=== PATIENT | female | born 1955 | race Caucasian/White ===

== ENCOUNTER → 2016-04-24 | Outpatient (CLI) | payer BC ==
--- NOTE | 2016-04-26 09:48 | MM ---
Reason for exam: screening (asymptomatic). Last mammogram was performed 1 year ago. History: Patient is postmenopausal. Family history of breast cancer in maternal grandmother at age 80. Took hormonal contraceptives for 2 years beginning at age 21. Took progesterone for 4 years 6 months beginning at age 47. Physical Findings: A clinical breast exam by your physician is recommended on an annual basis and results should be correlated with mammographic findings. MG 3D Screening Mammo W/Cad Bilateral CC and MLO view(s) were taken. Prior study comparison: April 21, 2015, bilateral MG 3d screening mammo w/cad. March 27, 2014, bilateral MG screening mammo w CAD. The breast tissue is heterogeneously dense. This may lower the sensitivity of mammography. There is no discrete abnormality. No significant changes when compared with prior studies. ASSESSMENT: Negative, BI-RAD 1 RECOMMENDATION: Routine screening mammogram of both breasts in 1 year.
== END | disposition home or self-care (01) ==
LOC: RADMAMWWP 13:38
PROVIDERS: ATTEND Family Medicine
DX: Z12.31 Encounter for screening mammogram for malignant neoplasm of breast (principal)
CPT/HCPCS: 77063; G0202

== ENCOUNTER → 2018-02-06 | Outpatient (CLI) | payer BC ==
--- NOTE | 2018-02-08 10:00 | MM ---
Reason for exam: screening (asymptomatic). Last mammogram was performed 1 year and 9 months ago. History: Patient is postmenopausal. Family history of breast cancer in maternal grandmother at age 80. Took hormonal contraceptives for 2 years beginning at age 21. Took progesterone for 4 years 6 months beginning at age 47. Physical Findings: A clinical breast exam by your physician is recommended on an annual basis and results should be correlated with mammographic findings. MG 3D Screening Mammo W/Cad Bilateral CC and MLO view(s) were taken. Prior study comparison: April 24, 2016, bilateral MG 3d screening mammo w/cad. April 21, 2015, bilateral MG 3d screening mammo w/cad. The breast tissue is heterogeneously dense. This may lower the sensitivity of mammography. There is chronic nodularity in the right breast. No significant changes when compared with prior studies. ASSESSMENT: Benign, BI-RAD 2 RECOMMENDATION: Routine screening mammogram of both breasts in 1 year.
== END | disposition home or self-care (01) ==
LOC: RADMAMWWP 16:54
PROVIDERS: ATTEND Family Medicine
DX: Z12.31 Encounter for screening mammogram for malignant neoplasm of breast (principal)
CPT/HCPCS: 77063; 77067

== ENCOUNTER → 2019-05-16 | Outpatient (CLI) | payer BC ==
--- NOTE | 2019-05-20 10:11 | MM ---
Reason for exam: screening (asymptomatic). Last mammogram was performed 1 year and 3 months ago. History: Patient is postmenopausal. Family history of breast cancer in maternal grandmother at age 80. Took hormonal contraceptives for 2 years beginning at age 21. Took progesterone for 4 years 6 months beginning at age 47. Physical Findings: A clinical breast exam by your physician is recommended on an annual basis and results should be correlated with mammographic findings. MG 3D Screening Mammo W/Cad Bilateral CC and MLO view(s) were taken. Prior study comparison: February 06, 2018, bilateral MG 3d screening mammo w/cad. April 24, 2016, bilateral MG 3d screening mammo w/cad. The breast tissue is heterogeneously dense. This may lower the sensitivity of mammography. No significant changes when compared with prior studies. ASSESSMENT: Benign, BI-RAD 2 RECOMMENDATION: Routine screening mammogram of both breasts in 1 year.
== END | disposition home or self-care (01) ==
LOC: RADMAMWWP 13:50
PROVIDERS: ATTEND Family Medicine
DX: Z12.31 Encounter for screening mammogram for malignant neoplasm of breast (principal)
CPT/HCPCS: 77063; 77067

== ENCOUNTER → 2020-07-23 | Outpatient (CLI) | payer BC ==
--- NOTE | 2020-07-27 07:29 | MM ---
Reason for exam: screening (asymptomatic). Last mammogram was performed 1 year and 2 months ago. History: Patient is postmenopausal. Family history of breast cancer in maternal grandmother at age 80. Took hormonal contraceptives for 2 years beginning at age 21. Took progesterone for 4 years 6 months beginning at age 47. Physical Findings: A clinical breast exam by your physician is recommended on an annual basis and results should be correlated with mammographic findings. MG 3D Screening Mammo W/Cad Bilateral CC and MLO view(s) were taken. Prior study comparison: May 16, 2019, bilateral MG 3d screening mammo w/cad. February 06, 2018, bilateral MG 3d screening mammo w/cad. The breast tissue is heterogeneously dense. This may lower the sensitivity of mammography. There is chronic nodularity in the right breast laterally. No significant changes when compared with prior studies. ASSESSMENT: Benign, BI-RAD 2 RECOMMENDATION: Routine screening mammogram of both breasts in 1 year.
== END | disposition home or self-care (01) ==
LOC: RADMAMWWP 14:45
PROVIDERS: ATTEND Family Medicine
DX: Z12.31 Encounter for screening mammogram for malignant neoplasm of breast (principal); Z80.3 Family history of malignant neoplasm of breast; Z78.0 Asymptomatic menopausal state
CPT/HCPCS: 77063; 77067

== ENCOUNTER → 2021-08-17 | Outpatient (CLI) | payer BC, MEDICARE ==
--- NOTE | 2021-08-19 11:50 | MM ---
Reason for exam: screening (asymptomatic). Last mammogram was performed 1 year and 1 month ago. History: Patient is postmenopausal. Family history of breast cancer in maternal grandmother at age 80. Took hormonal contraceptives for 2 years beginning at age 21. Took progesterone for 4 years 6 months beginning at age 47. Physical Findings: A clinical breast exam by your physician is recommended on an annual basis and results should be correlated with mammographic findings. MG 3D Screening Mammo W/Cad Bilateral CC and MLO view(s) were taken. Prior study comparison: July 23, 2020, bilateral MG 3d screening mammo w/cad. May 16, 2019, bilateral MG 3d screening mammo w/cad. The breast tissue is heterogeneously dense. This may lower the sensitivity of mammography. There is chronic nodularity in the right breast. No significant changes when compared with prior studies. ASSESSMENT: Benign, BI-RAD 2 RECOMMENDATION: Routine screening mammogram of both breasts in 1 year.
== END | disposition home or self-care (01) ==
LOC: RADMAMWWP 14:29
PROVIDERS: ATTEND Family Medicine
DX: Z12.31 Encounter for screening mammogram for malignant neoplasm of breast (principal); Z78.0 Asymptomatic menopausal state; Z80.3 Family history of malignant neoplasm of breast
CPT/HCPCS: 77063; 77067

== ENCOUNTER → 2022-08-18 | Outpatient (CLI) | payer BC, MEDICARE ==
--- NOTE | 2022-08-21 18:48 | MM ---
Reason for Exam: Screening (asymptomatic). Last screening mammogram was performed 12 month(s) ago. Patient History: Menarche at age 12. First Full-Term at age 20. Right ovary removed at age 52. Hysterectomy at age 52. Postmenopausal. Progesterone for 4 years, 6 months, from age 47 until age 52. Hormonal Contraceptives for 2 years from age 21 until age 23. Maternal grandmother had breast cancer, age 80. Risk Values: Yecenia 5 year model risk: 1.3%. NCI Lifetime model risk: 4.8%. Prior Study Comparison: 05/16/2019 Bilateral Screening Mammogram, [facility]. 07/23/2020 Bilateral Screening Mammogram, [facility]. 08/17/2021 Bilateral Screening Mammogram, [facility]. Tissue Density: The breast tissue is heterogeneously dense. This may lower the sensitivity of mammography. Findings: Analyzed By CAD. Pattern appears symmetrical and stable. Scattered benign calcifications are present. No significant interval change is evident. No suspicious groups of microcalcifications, spiculated or lobular masses, architectural distortion or other secondary signs of malignancy are mammographically apparent. Overall Assessment: Benign, BI-RAD 2 Management: Screening Mammogram of both breasts in 1 year. A negative mammogram report should not preclude additional follow up of suspicious palpable abnormalities. Patient should continue monthly self breast exam. A clinical breast exam by your physician is recommended on an annual basis and results should be correlated with mammographic findings. Electronically signed and approved by: Mukesh Burt D.O. Radiologis
== END | disposition home or self-care (01) ==
LOC: RADMAMWWP 16:50
PROVIDERS: ATTEND Family Medicine
DX: Z12.31 Encounter for screening mammogram for malignant neoplasm of breast (principal); Z78.0 Asymptomatic menopausal state; Z80.3 Family history of malignant neoplasm of breast
CPT/HCPCS: 77063; 77067

== ENCOUNTER → 2023-08-20 | Outpatient (CLI) | payer BC, MEDICARE ==
--- NOTE | 2023-08-21 20:26 | MM ---
Reason for Exam: Screening (asymptomatic). Last screening mammogram was performed 12 month(s) ago. Patient History: Menarche at age 12. First Full-Term at age 20. Right ovary removed at age 52. Hysterectomy at age 52. Postmenopausal. Progesterone for 4 years, 6 months, from age 47 until age 52. Hormonal Contraceptives for 2 years from age 21 until age 23. Maternal grandmother had breast cancer, age 80. Risk Values: Yecenia 5 year model risk: 1.3%. NCI Lifetime model risk: 4.6%. Prior Study Comparison: 07/23/2020 Bilateral Screening Mammogram, [facility]. 08/17/2021 Bilateral Screening Mammogram, [facility]. 08/18/2022 Bilateral MG 3D screening mammo w/cad, [facility]. Tissue Density: The breasts are heterogeneously dense, which may obscure small masses. Findings: Analyzed By CAD. 11-12 o'clock focal asymmetry right breast middle depth appears more defined. This may represent superimposition shadow but further evaluation is recommended. Otherwise, no significant change. Overall Assessment: Incomplete: need additional imaging evaluation, BI-RAD 0 Management: Special View Mammogram of the right breast. Diagnostic Breast Ultrasound of the right breast. . [facility] will attempt to contact patient to return for supplemental views and ultrasound if indicated. Electronically signed and approved by: Kelsey Lira M.D. Radiologist
== END | disposition home or self-care (01) ==
LOC: RADMAMWWP 16:15
PROVIDERS: ATTEND Family Medicine
DX: Z12.31 Encounter for screening mammogram for malignant neoplasm of breast (principal); Z80.3 Family history of malignant neoplasm of breast; Z78.0 Asymptomatic menopausal state
CPT/HCPCS: 77063; 77067

== ENCOUNTER → 2023-08-28 | Outpatient (CLI) | payer BC, MEDICARE ==
--- NOTE | 2023-08-28 14:20 | MM ---
Reason for Exam: Additional evaluation requested from abnormal screening. Last screening mammogram was performed less than 1 month ago. Patient History: Menarche at age 12. First Full-Term at age 20. Right ovary removed at age 52. Hysterectomy at age 52. Postmenopausal. Progesterone for 4 years, 6 months, from age 47 until age 52. Hormonal Contraceptives for 2 years from age 21 until age 23. Maternal grandmother had breast cancer, age 80. Risk Values: Yecenia 5 year model risk: 1.3%. NCI Lifetime model risk: 4.6%. Tissue Density: Right: The breasts are heterogeneously dense, which may obscure small masses. Findings: Analyzed By CAD. Under compression a persistent suspicious density is not identified. No distortion is evident. Precautionary six-month follow-up is recommended. No suspicious groups of microcalcifications, spiculated or lobular masses, architectural distortion or other secondary signs of malignancy are mammographically apparent. Overall Assessment: Probably benign, BI-RAD 3 Management: Diagnostic Mammogram of the right breast in 6 months. A negative mammogram report should not preclude additional follow up of suspicious palpable abnormalities. Patient should continue monthly self breast exam. A clinical breast exam by your physician is recommended on an annual basis and results should be correlated with mammographic findings. Note on Yecenia scores and lifetime risk: 1. A Yecenia score greater than 3% is considered moderate risk. If this is the case, consider specialist referral to assess eligibility for a risk reducing agent. 2. If overall lifetime risk for the development of breast cancer is 20% or higher, the patient may qualify for future screening with alternating mammogram and breast MRI. Electronically signed and approved by: Mukesh Burt D.O. Radiologis
== END | disposition home or self-care (01) ==
LOC: RADMAMWWP 13:50
PROVIDERS: ATTEND Family Medicine
DX: R92.8 Other abnormal and inconclusive findings on diagnostic imaging of breast (principal); R92.331 Mammographic heterogeneous density, right breast; Z78.0 Asymptomatic menopausal state; Z80.3 Family history of malignant neoplasm of breast
CPT/HCPCS: 77061; 77065

== ENCOUNTER → 2024-02-29 | Outpatient (CLI) | payer BC, MEDICARE ==
--- NOTE | 2024-02-29 13:42 | MM ---
Reason for Exam: Follow-up at short interval from prior study. Last screening mammogram was performed 6 month(s) ago. Patient History: Menarche at age 12. First Full-Term at age 20. Right ovary removed at age 52. Hysterectomy at age 52. Postmenopausal. Progesterone for 4 years, 6 months, from age 47 until age 52. Hormonal Contraceptives for 2 years from age 21 until age 23. Maternal grandmother had breast cancer, age 80. Risk Values: Yecenia 5 year model risk: 1.3%. NCI Lifetime model risk: 4.6%. Prior Study Comparison: 08/18/2022 Bilateral MG 3D screening mammo w/cad, [facility]. 08/20/2023 Bilateral MG 3D screening mammo w/cad, [facility]. 08/28/2023 Right MG 3D work up w/cad RT, [facility]. Tissue Density: Right: The breasts are heterogeneously dense, which may obscure small masses. Findings: Analyzed By CAD. Liver density noted at the 12:00 position 6.7 cm from the nipple measuring 1 cm. Ultrasound recommended. Overall Assessment: Incomplete: need additional imaging evaluation, BI-RAD 0 Management: Diagnostic Breast Ultrasound of the right breast. . Results were given to the patient verbally at the time of exam. Patient should continue monthly self-breast exams. A clinical breast exam by your physician is recommended on an annual basis. This exam should not preclude additional follow-up of suspicious palpable abnormalities. Note on Yecenia scores and lifetime risk: 1. A Yecenia score greater than 3% is considered moderate risk. If this is the case, consider specialist referral to assess eligibility for a risk reducing agent. 2. If overall lifetime risk for the development of breast cancer is 20% or higher, the patient may qualify for future screening with alternating mammogram and breast MRI. [facility], , 02/29/2024 1:39 PM. Electronically signed and approved by: Kevin Stone M.D. Radiologis
--- NOTE | 2024-02-29 14:05 | USB ---
Reason for Exam: Additional evaluation requested from prior study. Patient History: Menarche at age 12. First Full-Term at age 20. Right ovary removed at age 52. Hysterectomy at age 52. Postmenopausal. Progesterone for 4 years, 6 months, from age 47 until age 52. Hormonal Contraceptives for 2 years from age 21 until age 23. Maternal grandmother had breast cancer, age 80. Risk Values: Yecenia 5 year model risk: 1.3%. NCI Lifetime model risk: 4.6%. Technique: Method: Targeted. Prior Study Comparison: 08/18/2022 Bilateral MG 3D screening mammo w/cad, [facility]. 08/20/2023 Bilateral MG 3D screening mammo w/cad, [facility]. 08/28/2023 Right MG 3D work up w/cad RT, [facility]. Findings: The upper section of the breast of the right breast, the axilla of the right breast and the retroareolar of the right breast were scanned. 2 simple cysts are noted right breast. A cyst is seen at the 12:00 position 3 cm from the nipple measuring 1 cm. A second cyst is noted retroareolar region measuring 6 x 5 mm. No solid masses are detected.. Overall Assessment: Benign, BI-RAD 2 Management: Screening Mammogram of both breasts in 6 months. A clinical breast exam by your physician is recommended on an annual basis and results should be correlated with mammographic findings. This exam should not preclude additional follow-up of suspicious palpable abnormalities. Results were given to the patient verbally at the time of exam. [facility], , 02/29/2024 2:02 PM. Electronically signed and approved by: Kevin Stone M.D. Radiologis
== END | disposition home or self-care (01) ==
LOC: RADMAMWWP 13:16
PROVIDERS: ATTEND Family Medicine
DX: R92.8 Other abnormal and inconclusive findings on diagnostic imaging of breast (principal); Z78.0 Asymptomatic menopausal state; Z90.722 Acquired absence of ovaries, bilateral; Z80.3 Family history of malignant neoplasm of breast; R92.331 Mammographic heterogeneous density, right breast
CPT/HCPCS: 77061; 77065

== ENCOUNTER → 2024-08-21 | Outpatient (CLI) | payer BC, MEDICARE ==
--- NOTE | 2024-08-21 13:42 | MM ---
Reason for Exam: Screening (asymptomatic). Last screening mammogram was performed 12 month(s) ago. Patient History: Menarche at age 12. First Full-Term at age 20. Right ovary removed at age 52. Hysterectomy at age 52. Postmenopausal. Progesterone for 4 years, 6 months, from age 47 until age 52. Hormonal Contraceptives for 2 years from age 21 until age 23. Maternal grandmother had breast cancer, age 80. Risk Values: Yecenia 5 year model risk: 1.4%. NCI Lifetime model risk: 4.4%. Prior Study Comparison: 08/20/2023 Bilateral MG 3D screening mammo w/cad, [facility]. 08/28/2023 Right MG 3D work up w/cad RT, [facility]. 02/29/2024 Right MG 3D diag mammo w/cad RT, [facility]. Tissue Density: The breasts are heterogeneously dense, which may obscure small masses. Findings: Analyzed By CAD. There are a few tiny benign-appearing round calcifications bilaterally redemonstrated. There is no suspicious group of microcalcifications or new suspicious mass in either breast. Overall Assessment: Benign, BI-RAD 2 Management: Screening Mammogram of both breasts in 1 year. . Patient should continue monthly self-breast exams. A clinical breast exam by your physician is recommended on an annual basis. This exam should not preclude additional follow-up of suspicious palpable abnormalities. Note on Yecenia scores and lifetime risk: 1. A Yecenia score greater than 3% is considered moderate risk. If this is the case, consider specialist referral to assess eligibility for a risk reducing agent. 2. If overall lifetime risk for the development of breast cancer is 20% or higher, the patient may qualify for future screening with alternating mammogram and breast MRI. [facility], , 08/21/2024 1:18 PM. Electronically signed and approved by: Eric Cox M.D.
== END | disposition home or self-care (01) ==
LOC: RADMAMWWP 12:39
PROVIDERS: ATTEND Family Medicine
DX: Z12.31 Encounter for screening mammogram for malignant neoplasm of breast (principal); R92.333 Mammographic heterogeneous density, bilateral breasts; R92.1 Mammographic calcification found on diagnostic imaging of breast; Z78.0 Asymptomatic menopausal state; Z80.3 Family history of malignant neoplasm of breast; Z92.0 Personal history of contraception
CPT/HCPCS: 77063; 77067